=== PATIENT | male | born 1940 | race African-American/Black ===

== ENCOUNTER 2022-03-25 12:09 | Inpatient (IN) | payer BC, OTHER ==
[~2022-03-25] VITALS: Ht 193 cm; Wt 80.8 kg
[~2022-03-25 12:09] MED LIST: ASPI-1497 PO
[2022-03-25] MEDS ORDERED: IPRATROPIUM BROMIDE (0.02%) 0.5MG/2.5ML NEB HHN STA (19:30)
[2022-03-25] MEDS ORDERED: ALBUTEROL (0.083%) 2.5MG/3ML NEB HHN STA (19:30)
[2022-03-25] MEDS ORDERED: SODIUM CHLORIDE 0.9% 500 ML IV ONE (19:30)
[2022-03-25 19:47] LABS: BASOPHILS % 0.7 % (0.0-2.0); EOSINOPHILS % 4.2 % (0.0-5.0); HEMATOCRIT. 36.1 % (42.0-52.0); HEMOGLOBIN. 11.5 g/dL (14.0-18.0); MEAN CORPUSCULAR HEMOGLOBIN 24.7 pg (28.0-32.0); MEAN CORPUSCULAR VOLUME 77.4 fL (80.0-94.0); MEAN PLATELET VOLUME 9.6 fl (7.4-10.4); MONOCYTES % 6.3 % (2.0-8.0); NEUTROPHILS % 61.8 % (40.0-76.0); PLATELET 273 x1000/uL (130-400); RED BLOOD CELL COUNT 4.66 mill/uL (4.7-6.1)
[2022-03-25 20:00] LABS: CHLORIDE 108 mEq/L (98-107)
[2022-03-25 23:48] LABS: CLARITY URINE CLEAR (CLEAR); COLOR URINE YELLOW (YELLOW); KETONES URINE TRACE (NEGATIVE); LEUKOCYTE ESTERASE URINE NEGATIVE (NEGATIVE); NITRITE URINE NEGATIVE (NEGATIVE); OCCULT BLOOD URINE NEGATIVE (NEGATIVE); PH URINE 5.5 (4.5-8.0); PROTEIN URINE NEGATIVE (NEGATIVE); SPECIFIC GRAVITY URINE 1.022 (1.005-1.030); UROBILINOGEN URINE 0.2 E.U./dL (0.2-1.0)
[2022-03-26] VITALS (9 sets, daily range): BP systolic 121–168; BP diastolic 69–87
[2022-03-26] MEDS ORDERED: NAPR-681 PO (01:40)
[2022-03-26] MEDS ORDERED: FAMO40TA7 PO (01:40)
[2022-03-26] MEDS ORDERED: DILT60TA41 PO (01:40)
[2022-03-26] MEDS ORDERED: KETOROLAC 15MG/ML VIAL IV PRN (03:30)
[2022-03-26] MEDS ORDERED: CLONIDINE 0.1MG TABLET PO PRN (03:30)
[2022-03-26] MEDS ORDERED: ONDANSETRON HCL 4MG/2ML INJ IV PRN (03:30)
[2022-03-26] MEDS ORDERED: ACETAMINOPHEN 325MG TABLET PO PRN (03:30)
[2022-03-26] MEDS ORDERED: INFLUENZA VACCINE 05/PF 0.5 ML SYRINGE IM ONE (09:00)
[2022-03-26] MEDS: PANTOPRAZOLE 40MG DR TABLET PO SCH (09:02)
[2022-03-26] MEDS: ASPIRIN 325MG EC TABLET PO SCH (09:02)
[2022-03-26 14:36] LABS: CREATINE KINASE 59 IU/L (39-308); CREATINE KINASE MB FRACTION < 1.0 ng/mL (0.5-3.6)
[2022-03-26] MEDS: IPRATROPIUM/ALBUTEROL 0.5-3(2.5)MG/3ML NEB HHN SCH ×2 (14:45→21:21)
[2022-03-26 18:10] LABS: *AMPHETAMINES SCREEN URINE NEGATIVE (NEGATIVE); *BARBITURATES SCREEN URINE NEGATIVE (NEGATIVE); *BENZODIAZEPINES SCREEN URINE NEGATIVE (NEGATIVE); *COCAINE SCREEN URINE PRESUMTIVE POSITIVE (NEGATIVE); CANNABINOID URINE SCREEN NEGATIVE (NEGATIVE); METHADONE URINE SCREEN NEGATIVE (NEGATIVE); OPIATES URINE SCREEN NEGATIVE (NEGATIVE); PHENCYCLIDINE URINE SCREEN NEGATIVE (NEGATIVE)
[2022-03-26 18:34] LABS: CREATINE KINASE 56 IU/L (39-308); CREATINE KINASE MB FRACTION < 1.0 ng/mL (0.5-3.6)
[2022-03-27] VITALS: BP 125/69
[2022-03-27] MEDS: IPRATROPIUM/ALBUTEROL 0.5-3(2.5)MG/3ML NEB HHN SCH ×2 (01:28→08:55)
[2022-03-27 04:00] VITALS: BP 131/77
[2022-03-27 08:00] VITALS: BP 146/73
[2022-03-27] MEDS: PANTOPRAZOLE 40MG DR TABLET PO SCH (08:10)
[2022-03-27] MEDS: ASPIRIN 325MG EC TABLET PO SCH (08:10)
[2022-03-27] MEDS ORDERED: ASPI-1497 PO (09:02)
[2022-03-27 11:14] LABS: INR 1.1; PROTHROMBIN TIME 11.3 sec (9.6-11.0)
[2022-03-27 12:16] VITALS: BP 149/57
[2022-03-27 15:26] VITALS: BP 146/73
[2022-03-28] MEDS ORDERED: FAMOTIDINE 20MG TABLET PO SCH (09:00)
== END 2022-03-27 17:48 | disposition home health service (06) | DRG 74 ==
LOC: ER 12:09 → EDBEDREQ 19:10 → EDBEDREQTM 21:02 → EDBEDREQ 21:03 → MICUSO 23:26 → 6WST 23:45
PROVIDERS: ADMIT Internal Medicine; ATTEND Internal Medicine
DX: G90.8 Other disorders of autonomic nervous system (principal); F17.210 Nicotine dependence, cigarettes, uncomplicated; F14.10 Cocaine abuse, uncomplicated; F19.10 Other psychoactive substance abuse, uncomplicated; R00.2 Palpitations; Z86.73 Personal history of transient ischemic attack (TIA), and cerebral infarction without residual deficits
CPT/HCPCS: 36415; 71045; 80053; 80305; 81003; 82550; 82553; 83880; 84484; 85025; 90686; 93005; 93970; 94640; 99285; J7040